=== PATIENT | male | born 1980 | race Caucasian/White ===

== ENCOUNTER → 2019-09-30 | Outpatient (CLI) | payer BC ==
[~2019-09-30] MED LIST: EYE PROMISE PO; KRIL1CAP22 PO; LORA10TA75 PO; MULT-297 PO; SUMA50TA4 PO; Testosterone; Vitamin C PO; Vitamin D3 PO
[2019-09-30 14:10] LABS: BASOPHILS # (AUTO) 0.04 x10^3/uL (0-0.1); BASOPHILS % (AUTO) 1 % (0-1); EOSINOPHILS % (AUTO) 2 % (1-7); LYMPHOCYTES # (AUTO) 1.25 x10^3/uL (1-3.4); LYMPHOCYTES % (AUTO) 26 % (22-44); MD NO; MEAN CORPUSCULAR HEMOGLOBIN 32.5 pg (27.5-34.5); MEAN CORPUSCULAR HGB CONC 33.5 g/dL (33.2-36.2); MEAN CORPUSCULAR VOLUME 96.9 fL (81-97); MEAN PLATELET VOLUME 8.3 fL (7.4-10.4); MONOCYTES # (AUTO) 0.33 x10^3/uL (0.2-0.8); MONOCYTES % (AUTO) 7 % (2-9); NEUTROPHILS # (AUTO) 3.11 x10^3/uL (1.8-6.8); NEUTROPHILS % (AUTO) 65 % (42-75); PLATELET COUNT 215 x10^3/uL (130-400); RED BLOOD COUNT 5.26 x10^6/uL (4.38-5.82); RED CELL DISTRIBUTION WIDTH 13.2 % (9.4-14.8)
[2019-09-30 14:11] LABS: ANION GAP 2 mmol/L (5-15); CALCIUM 9.3 mg/dL (8.5-10.1); CHLORIDE 105 mmol/L (98-107); CREATININE 1.04 mg/dL (0.7-1.3)
[2019-09-30 14:13] LABS: MICROSCOPIC NOT IND
== END | disposition home or self-care (01) ==
LOC: STAR 12:37
PROVIDERS: ATTEND Obstetrics & Gynecology
DX: Z01.818 Encounter for other preprocedural examination (principal); R10.2 Pelvic and perineal pain; R58 Hemorrhage, not elsewhere classified
CPT/HCPCS: 36415; 80048; 81003; 84702; 85025

== ENCOUNTER 2019-10-08 06:35 | Day surgery (SDC) | payer BC ==
[~2019-10-08] VITALS: Ht 160 cm; Wt 71.3 kg
[2019-10-08] MEDS ORDERED: MAGNESIUM SULFATE 1 GM/2 ML ONE (06:45)
[2019-10-08] MEDS ORDERED: LIDOCAINE 1%, 20ML ONE (06:45)
[2019-10-08] MEDS ORDERED: LABETALOL 5MG/ML, 20ML ONE (06:45)
[2019-10-08] MEDS ORDERED: KETAMINE 10 MG/ML, 20ML ONE (06:45)
[2019-10-08] MEDS ORDERED: ROCURONIUM 10MG/ML,5ML ONE (07:01)
[2019-10-08] MEDS ORDERED: DEXAMETHASONE 4 MG/ML, 1ML ONE (07:01)
[2019-10-08] MEDS ORDERED: MIDAZOLAM 1 MG/ML, 2ML ONE (07:01)
[2019-10-08] MEDS ORDERED: FENTANYL PF 250 MCG/5ML ONE (07:01)
[2019-10-08] MEDS ORDERED: GLYCOPYRROLATE 0.2MG/1ML, 5ML ONE (07:01)
[2019-10-08] MEDS ORDERED: PROPOFOL 10 MG/ML, 20ML ONE (07:01)
[2019-10-08] MEDS ORDERED: LIDOCAINE-MPF 2% ,5ML ONE (07:01)
[2019-10-08] MEDS ORDERED: LACTATED RINGERS 1,000 ML IV SCH (07:13)
[2019-10-08] MEDS ORDERED: CHLORHEXIDINE 15 ML UDC MM ONE (07:30)
[2019-10-08] MEDS ORDERED: LIDOCAINE-MPF 1%, 2ML INFIL ONE (07:30)
[2019-10-08] MEDS ORDERED: ACETAMINOPHEN 500 MG TABLET PO ONE (07:30)
[2019-10-08] MEDS ORDERED: GABAPENTIN 300 MG CAPSULE PO ONE (07:30)
[2019-10-08 07:51] LABS: HCG UR SG 1.002
[2019-10-08] MEDS ORDERED: METOCLOPRAMIDE 5 MG/ML, 2ML IVPush PRN (08:00)
[2019-10-08] MEDS ORDERED: EPHEDRINE 50 MG/ML, 1ML IM PRN (08:00)
[2019-10-08] MEDS ORDERED: EPHEDRINE 50 MG/ML, 1ML IVPush PRN (08:00)
[2019-10-08] MEDS ORDERED: HYDROcodone/APAP 7.5-325MG/15ML UDC PO PRN (08:00)
[2019-10-08] MEDS ORDERED: morphine SULFATE 10 MG/ML, 1ML IVPush PRN (08:00)
[2019-10-08] MEDS ORDERED: LORazepam 2 MG/ML, 1ML IVPush PRN (08:00)
[2019-10-08] MEDS ORDERED: HALOPERIDOL 5 MG/ML IV PRN (08:00)
[2019-10-08] MEDS ORDERED: DIPHENHYDRAMINE 50 MG/ML, 1ML IVPush PRN (08:00)
[2019-10-08] MEDS ORDERED: HYDROmorphone 1 MG/ML, 1ML INJ IVPush PRN (08:00)
[2019-10-08] MEDS ORDERED: hydrALAzine 20 MG/ML, 1ML IV PRN (08:00)
[2019-10-08] MEDS ORDERED: FENTANYL PF 100 MCG/2ML IV PRN (08:00)
[2019-10-08] MEDS ORDERED: ALBUTEROL/IPRATROPIUM 2.5MG/0.5MG, 3 ML NPPB PRN (08:00)
[2019-10-08] MEDS ORDERED: MIDAZOLAM 1 MG/ML, 2ML IV PRN (08:00)
[2019-10-08] MEDS ORDERED: ONDANSETRON 2MG/ML, 2ML IVPush PRN (08:00)
[2019-10-08] MEDS ORDERED: DIAZEPAM 5 MG/ML, 2ML IVPush PRN (08:00)
[2019-10-08] MEDS ORDERED: KETOROLAC 30 MG/1 ML IVPush PRN (08:00)
[2019-10-08] MEDS ORDERED: LABETALOL 5MG/ML, 20ML IV PRN (08:00)
[2019-10-08] MEDS ORDERED: METHOCARBAMOL 1,000 MG in DEXTROSE 5% 100 ML IV PRN (08:00)
[2019-10-08] MEDS ORDERED: MEPERIDINE/PF 25MG/0.5ML IVPush PRN (08:00)
[2019-10-08] MEDS ORDERED: ACETAMINOPHEN 325 MG TABLET PO PRN (08:00)
[2019-10-08] MEDS ORDERED: OXYcodone 5 MG/5 ML ORAL.SOL UDC PO PRN (08:00)
[2019-10-08] MEDS ORDERED: CEFAZOLIN 1,000 MG ONE (09:02)
[2019-10-08] MEDS ORDERED: BUPIVACAINE/PF 0.25% ONE (09:20)
[2019-10-08] MEDS ORDERED: BUPIVACAINE/PF-EPI 0.25% 1:200K ONE (09:20)
[2019-10-08] MEDS ORDERED: FLUORESCEIN SODIUM 500 MG/5 ML ONE (09:20)
[2019-10-08] MEDS ORDERED: ESTROGENS CONJUGATED VAG CRM 0.625MG/1G, 30GM ONE (09:50)
[2019-10-08] MEDS ORDERED: ONDANSETRON 2MG/ML, 2ML ONE (10:11)
== END 2019-10-08 14:50 | disposition home or self-care (01) ==
LOC: OUT 06:35
PROVIDERS: ATTEND Obstetrics & Gynecology
DX: N93.9 Abnormal uterine and vaginal bleeding, unspecified (principal); Z11.59 Encounter for screening for other viral diseases; F64.1 Dual role transvestism; N83.02 Follicular cyst of left ovary; N83.01 Follicular cyst of right ovary; R10.2 Pelvic and perineal pain; G43.909 Migraine, unspecified, not intractable, without status migrainosus; F32.9 Major depressive disorder, single episode, unspecified; Z79.899 Other long term (current) drug therapy; Z87.442 Personal history of urinary calculi; Z90.13 Acquired absence of bilateral breasts and nipples; Z90.49 Acquired absence of other specified parts of digestive tract; Z98.890 Other specified postprocedural states
CPT/HCPCS: 58552; 81025; 88307; J0690; J1100; J2250; J2405; J2704; J3010; J3475; J3490; J7120; U0001